=== PATIENT | female | born 2000 | race Caucasian/White ===

== ENCOUNTER 2022-02-24 16:18 | Emergency (ER) | payer BC ==
[~2022-02-24] VITALS: Ht 172.7 cm; Wt 67.3 kg
[2022-02-24 16:32] VITALS: BP 124/89
--- NOTE | 2022-02-24 16:40 | NUR ---
PT AMB TO BED 7.
--- NOTE | 2022-02-24 16:48 | NUR ---
NEIL LEMA AT BEDSIDE FOR EVALUATION
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
[2022-02-24] MEDS ORDERED: BACI-416 TP (17:10)
[2022-02-24] MEDS ORDERED: AMOX1TAB8 PO (17:10)
--- NOTE | 2022-02-24 17:19 | NUR ---
Patient discharged with v/s stable. Written and verbal after care instructions FOR ANIMAL BITE given and explained. Patient alert, oriented and verbalized understanding of instructions. Ambulatory with steady gait. All questions addressed prior to discharge. ID band removed. Patient advised to follow up with PMD. Rx of AMOXICILLIN AND BACITRACIN given. Opportunity to ask questions provided and answered.
--- NOTE | 2022-02-24 18:16 | NUR ---
The patient's care was reviewed and supervised by [facility], RN.
== END 2022-02-24 17:19 | disposition home or self-care (01) ==
LOC: MED 16:18
DX: S60.512A Abrasion of left hand, initial encounter (principal); R03.0 Elevated blood-pressure reading, without diagnosis of hypertension; W55.01XA Bitten by cat, initial encounter; Y93.89 Activity, other specified; Y92.89 Other specified places as the place of occurrence of the external cause; Y99.8 Other external cause status
CPT/HCPCS: 90715; 99283